=== PATIENT | female | born 1965 | race Caucasian/White ===

== ENCOUNTER 2020-04-19 23:55 | Emergency (ER) | payer MEDICAID, SELFPAY ==
[2020-04-20] VITALS (7 sets, daily range): BP systolic 110–166; BP diastolic 65–93; PULSE 78–88; RESP 16–18; TEMP 36.8; O2SAT 94–98; BMI 29.0
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
--- NOTE | 2020-04-20 00:19 | ECG_ITS ---
Test Reason : SYNCOPE Blood Pressure : / mmHG Vent. Rate : 086 BPM Atrial Rate : 086 BPM P-R Int : 134 ms QRS Dur : 082 ms QT Int : 364 ms P-R-T Axes : 053 047 -04 degrees QTc Int : 435 ms Normal sinus rhythm Possible Left atrial enlargement T wave abnormality, consider inferior ischemia Abnormal ECG When compared with ECG of 07-OCT-2010 07:11, Vent. rate has decreased BY 56 BPM Criteria for Septal infarct are no longer Present Nonspecific T wave abnormality, improved in Lateral leads Referred By: Tiesha Oneill Electronically Signed By:ROBBY ANGELA
[2020-04-20 00:44] LABS: MANUAL DIFF FLAG NO
[2020-04-20 00:45] LABS: Basophils Absolute Auto 0.1 X10*3/uL (0.0-0.2); Basophils Percent Auto 0.6 % (0-2); Eosinophils Absolute Auto 0.3 X10*3/uL (0.0-0.4); Eosinophils Percent Auto 3.5 % (0-4); Hematocrit 37.5 % (37-47); Hemoglobin 12.6 g/dl (12.0-16.0); Imm Gran Abs Auto 0.04 X10*3/uL (0.00-0.03); Imm Gran Pct Auto 0.4 % (0.0-0.4); Lymphocytes Absolute Auto 2.8 X10*3/uL (1.2-4.9); Lymphocytes Percent Auto 29.4 % (20-40); Mean Corpuscular HGB Conc 33.6 g/dl (31.0-35.0); Mean Corpuscular Hemoglobin 30.7 pg (27.0-33.0); Mean Corpuscular Volume 91.2 fL (80-98); Mean Platelet Volume 9.3 fL (9.4-12.3); Monocytes Absolute Auto 0.6 X10*3/uL (0.1-1.2); Monocytes Percent Auto 6.6 % (2-11); Neutrophils Absolute Auto 5.7 X10*3/uL (2.0-8.3); Neutrophils Percent Auto 59.5 % (45-73); Platelet Count 280 X10*3/uL (160-400); Red Blood Count 4.11 X10*6/uL (4.20-5.50); White Blood Count 9.6 X10*3/uL (4.8-10.8)
--- NOTE | 2020-04-20 01:03 | ED.SYNCOPE ---
HPI - Syncope General Chief Complaint: Syncope Stated Complaint: syncope Time Seen by Provider: 04/20/20 00:19 Source: patient Mode of arrival: ambulatory History of Present Illness HPI narrative: This is a 54-year-old female with history of fibromyalgia and presents after taking to hits off a blunt and then stated that she felt a flushing of her face and ?passed out?. She denies any associated diaphoresis, nausea, chest pain/palpitations, shortness of breath, cool or clammy feeling prior to this event. As per EMS report patient received nasal Narcan as well as Zofran. Their report also states that patient struck her head, however patient does not recall this event. She states that she woke up and her significant other was ?freaking out and he should take an ambulance?. Related Data Allergies Allergy/AdvReac Type Severity Reaction Status Date / Time No Known Allergies Allergy Unverified 11/06/19 14:45 Review of Systems Review of Systems: Pertinent positives and negatives as stated in HPI 10 point review systems is otherwise negative. PMFSH Past Medical History Source: nursing notes reviewed Social History Social History Alcohol intake: current Alcohol intake frequency: other Alcohol type: hard liquor Smoking Status: Never smoker Substance Use Type: Crack/Cocaine, Heroin and Marijuana Substance Use Frequency: Socially Last Used Substance: Weeks (ago) Any prior treatment program specific to substance use: Yes Advance Directives: No Physical Exam Vital Signs: Vital Signs: Last Vital Signs Temp 98.3 F 04/20/20 00:24 Pulse 87 04/20/20 01:49 Resp 16 04/20/20 01:49 BP 110/82 04/20/20 01:49 Pulse Ox 98 04/20/20 01:49 Body Mass Index 29.0 VITAL SIGNS: Reviewed. GENERAL: Well developed, well nourished, in no acute distress. HEAD: Normocephalic/atraumatic, EYES: PERRLA, EOMI NOSE: Nares patent bilateral OROPHARYNX: no oral lesions noted, posterior pharynx clear NECK: Supple, no adenopathy LUNGS: Normal breath sounds. No adventitious sounds or accessory muscle use. SpO2<94> CARDIOVASCULAR: Regular rate and rhythm without noted murmurs ABDOMEN: Soft, non-tender, non-distended with bowel sounds. SKIN: Inspection of the skin reveals no rashes, ulcerations, jaundice, pallor, or petechiae. NEUROLOGIC: Alert and oriented x 4. Strength and sensation to light touch were grossly intact x 4, no pronator drift, no facial asymmetry, cranial nerves 2-12 are grossly intact, cerebellar testing intact Course Course Course Narrative: This is a 54-year-old female with history and clinical presentation likely consistent with vasovagal response secondary to marijuana use, but will rule out infection, anemia, cardiopulmonary etiologies. Review of all investigations is negative for any acute findings to better explain patient's ?passing out?. Patient encouraged to drink plenty of fluids and she was discharged in stable condition. MDM - Syncope Lab Data Result diagrams: 04/20/20 00:39 04/20/20 00:40 Labs: Lab Results 04/20/20 04/20/20 04/20/20 Range/Units 00:39 00:40 01:39 WBC 9.6 (4.8-10.8) X10*3/uL RBC 4.11 L (4.20-5.50) X10*6/uL Hgb 12.6 (12.0-16.0) g/dl Hct 37.5 (37-47) % MCV 91.2 (80-98) fL MCH 30.7 (27.0-33.0) pg MCHC 33.6 (31.0-35.0) g/dl RDW 12.0 (11.0-16.0) % Plt Count 280 (160-400) X10*3/uL MPV 9.3 L (9.4-12.3) fL Immature Gran % (Auto) 0.4 (0.0-0.4) % Neut % (Auto) 59.5 (45-73) % Lymph % (Auto) 29.4 (20-40) % Stevens % (Auto) 6.6 (2-11) % Eos % (Auto) 3.5 (0-4) % Baso % (Auto) 0.6 (0-2) % Lymph # (Auto) 2.8 (1.2-4.9) X10*3/uL Stevens # (Auto) 0.6 (0.1-1.2) X10*3/uL Eos # (Auto) 0.3 (0.0-0.4) X10*3/uL Baso # (Auto) 0.1 (0.0-0.2) X10*3/uL Abs Immat Gran (auto) 0.04 H (0.00-0.03) X10*3/uL Absolute Neuts (auto) 5.7 (2.0-8.3) X10*3/uL Absolute Nucleated RBC 0.000 (0.0-0.012) X10*3/uL Nucleated RBC % (auto) 0.0 (0.0-0.2) /100WBC Sodium 142 (135-145) mmol/L Potassium 4.0 (3.3-5.1) mmol/L Chloride 105 (96-108) mmol/L Carbon Dioxide 27 (22-29) mmol/L Anion Gap 14 (12-20) BUN 27 H (9-16) mg/dL Creatinine 0.79 (0.5-1.4) mg/dL Estim Creat Clear Calc 79.6 Estimated GFR > 60 Random Glucose 119 H (60-115) mg/dL Calcium 9.3 (8.4-10.2) mg/dL Total Bilirubin 0.4 (0.0-1.0) mg/dL AST 19 (5-31) U/L ALT 35 H (0-31) U/L Alkaline Phosphatase 82 (39-117) U/L Total Protein 7.1 (6.5-8.0) g/dL Albumin 4.5 (3.5-5.0) g/dL Urine Color YELLOW Urine Appearance CLEAR Urine pH 6.0 (5.0-8.0) Ur Specific [place] >= 1.030 H (1.005-1.025) Urine Protein NEG (NEG-TRACE) MG/DL Urine Glucose (UA) NEG (NEG) MG/DL Urine Ketones NEG (NEG) MG/DL Urine Blood NEG (NEG) Urine Nitrite NEG (NEG) Ur Leukocyte Esterase NEG (NEG) ECG Data Attestation: I personally reviewed and interpreted this ECG as follows: Prior ECG tracings: available for review (10/07/2010 no acute changes on comparison) Interpretation: Normal sinus rhythm, HR -86, no evidence of acute ischemia, TX/QRS/QTC are within normal limits. Discharge Plan Discharge Clinical Impression: Vasovagal syncope Patient Disposition: Home, Self-Care Instructions: Syncope (ED) Additional Instructions: Do not hesitate to return to the emergency department at if you develop any acute worsening of your symptoms or decide that you would like detox. Referrals: Physician,Unknown [Primary Care Provider] - 2 days
[2020-04-20 01:15] LABS: Alanine Aminotransferase 35 U/L (0-31); Albumin Level 4.5 g/dL (3.5-5.0); Alkaline Phosphatase 82 U/L (39-117); Anion Gap 14 (12-20); Aspartate Amino Transferase 19 U/L (5-31); Bilirubin Total 0.4 mg/dL (0.0-1.0); Blood Urea Nitrogen 27 mg/dL (9-16); Calcium 9.3 mg/dL (8.4-10.2); Carbon Dioxide 27 mmol/L (22-29); Chloride 105 mmol/L (96-108); Creatinine Clr Calc Pharmacy 79.6; Estimated Glomerular Filt Rate > 60; Glucose Random 119 mg/dL (60-115); Sodium 142 mmol/L (135-145); Total Protein 7.1 g/dL (6.5-8.0)
[2020-04-20 01:53] LABS: Glucose Urine UA NEG (NEG); Leukocyte Esterase Urine NEG (NEG); Nitrite Urine NEG (NEG); Specific Gravity - Urine >= 1.030 (1.005-1.025); Urine Blood NEG (NEG); Urine Ketones NEG (NEG); Urine Protein NEG (NEG-TRACE)
[2020-04-20 01:54] LABS: Appearance Urine CLEAR; Color Urine YELLOW; UACC Culture Trigger NO
[2020-04-20] MEDS: Naloxone HCl Nasal TAKE HOME 4 MG SPRAY NOSTRILALT (02:26)
--- NOTE | 2020-04-20 02:27 | PC.NURSE ---
narcan nasal 4mg for take home, not administered in the ed.
== END 2020-04-20 02:37 | disposition home or self-care (01) ==
PROVIDERS: Emergency Provider Student in an Organized Health Care Education/Training Program
DX: R55 Syncope and collapse (principal); F11.20 Opioid dependence, uncomplicated; F14.90 Cocaine use, unspecified, uncomplicated; F12.90 Cannabis use, unspecified, uncomplicated
CPT/HCPCS: 36415; 80053; 81003; 85025; 93005; 99284; 99285

== ENCOUNTER 2020-07-15 23:58 | Emergency (ER) | payer MEDICAID, SELFPAY ==
[2020-07-16 00:41] VITALS: BP 134/78; PULSE 92; RESP 18; TEMP 36.9; O2SAT 95; BMI 29.5
--- NOTE | 2020-07-16 01:05 | ED_ITS ---
HPI - General Adult General Chief complaint: General Medical Stated complaint: multiple complaints Time Seen by Provider: 07/16/20 01:05 History of Present Illness HPI narrative: Patient is a 55-year-old female she was concerned that she developed a rash over her arm. May have extra tissue over her axillary area. Patient denies any shortness of breath. No changes in her voice. No changes in her speech. Previously had a history of fibromyalgia. No coughing or congestion upper respiratory symptoms. No fever. Related Data Allergies Allergy/AdvReac Type Severity Reaction Status Date / Time No Known Allergies Allergy Verified 07/16/20 00:40 Review of Systems Review of Systems: Constitutional: No Weight loss, No Fever, No Chills, No Night Sweats, No Fatigue, No Malaise ENT/Mouth: No Hearing loss, No Ear Pain, No Nasal Congestion, No Sinus Pain, No Hoarseness, No sore throat, No Rhinorrhea, No Swallowing Difficulty Eyes: No Eye Pain, No Swelling, No Redness, No Foreign Body, No Discharge, No Vision Changes Cardiovascular: No Chest Pain, No SOB, No Dyspnea on Exertion, No Orthopnea, No Edema, No Palpitations Respiratory: No Cough, No Sputum, No Wheezing, No Smoke Exposure, No Dyspnea Gastrointestinal: No Nausea, No Vomiting, No Diarrhea, No Constipation, No abdominal Pain, No Hematochezia, No Melena Genitourinary: no irregular bleeding, No Dysuria, No Urinary Frequency, No Hematuria, No Urinary Incontinence, No Urgency, No Flank Pain, No Urinary Flow Changes, No Hesitancy Musculoskeletal: No joint pain, No Myalgias, No Joint Swelling Skin: No Skin Lesions, positive rash over the sun-exposed area of the left forearm Neuro: No Weakness, No Numbness, No Paresthesias, No Loss of Consciousness, No Dizziness, No Headache Psych: No Anxiety/Panic, No Depression, No SI/HI/AH/VH, No Social Issues, Heme/Lymph: No Bruising, No Bleeding,No Lymphadenopathy Endocrine: No Polyuria, No Polydipsia, No Temperature Intolerance [facility] Social History Social History Alcohol intake: current Alcohol intake frequency: other Alcohol type: hard liquor Substance Use Type: Crack/Cocaine, Heroin and Marijuana Patient : No Physical Exam Vital Signs: Vital Signs: Last Vital Signs Temp 98.4 F 07/16/20 00:41 Pulse 92 07/16/20 00:41 Resp 18 07/16/20 00:41 BP 134/78 07/16/20 00:41 Pulse Ox 95 07/16/20 00:41 Body Mass Index 29.5 Appearance: Alert. Oriented X3. No acute distress. Eyes: Pupils equal, round and reactive to light. ENT: Pharynx normal. Neck: Normal inspection. Neck supple. No lymph nodes noted. No crepitus CVS: Normal heart rate and rhythm. Pulses normal. Normal S1 and S2 Respiratory: No respiratory distress. Breath sounds normal. No Wheezing. No rales. There is no nodes that was palpable in the axillary area. There is small amount adipose tissue does noted bilaterally. Abdomen: Soft and nontender. No rigidity. No distention. good BS x4 Skin: Skin warm and dry. Normal skin color. Normal skin turgor. There is a slightly raised red rash over the sun-exposed area on the left arm and forearm. It blanches. Extremities: No lower extremity edema. Neurovascular intact to all extremities. No Lacerations. No Rash Neuro: Oriented X 3. No motor deficit. No sensory deficit. Moving all extermities. No slurred speech Medical Decision Making MDM Narrative Medical decision making narrative: Patient had the coronavirus vaccine 2nd dose visor today. Subsequently noted questionable tissue in her axillary area. It appears to be adipose tissue there was no nodes that was palpable there is no gross erythema there. There is a possible sun exposed rash to the left forearm and arm. Will ask patient to use Benadryl. Patient's lungs are clear. No distress. Speaking in complete sentences. In stable condition. Will discharge home. Discharge Plan Discharge Clinical Impression: Allergic reaction Instructions: General Allergic Reaction (ED) Referrals: Physician,None [Primary Care Provider] - 2 days (Follow-up with your doctor in 2 days if symptoms not improved.)
== END 2020-07-16 01:20 | disposition home or self-care (01) ==
PROVIDERS: Emergency Provider Emergency Medicine Emergency Medical Services
DX: L56.3 Solar urticaria (principal); F14.90 Cocaine use, unspecified, uncomplicated; F11.90 Opioid use, unspecified, uncomplicated; F12.90 Cannabis use, unspecified, uncomplicated
CPT/HCPCS: 99282; 99283

== ENCOUNTER 2020-09-23 22:20 | Emergency (ER) | payer MEDICAID, SELFPAY ==
[2020-09-23 22:42] VITALS: BP 134/70; PULSE 92; RESP 18; TEMP 36.8; O2SAT 97; BMI 29.9
--- NOTE | 2020-09-23 23:21 | ED_ITS ---
HPI - Extremity Problem General Chief complaint: Extremity Injury, Upper Stated complaint: elbow inj Time Seen by Provider: 09/23/20 23:16 Source: patient Mode of arrival: ambulatory Limitations: no limitations History of Present Illness HPI Narrative: The patient presented with right elbow pain for about a month she has no direct trauma in the elbow she states that it started when she carry heavy grocery at home Complaint: extremity pain Onset (ago): day(s) Pain Consistency: constant Location: right (elbow) Radiation: none Relieving factors: nothing Exacerbating factors: nothing Associated symptoms: denies other symptoms Related Data Previous Rx's Medication Instructions Recorded ibuprofen 800 mg tablet 800 mg PO TID PRN #20 tab 09/23/20 Allergies Allergy/AdvReac Type Severity Reaction Status Date / Time No Known Allergies Allergy Verified 09/23/20 22:42 Review of Systems Review of Systems: Yes all other systems are reviewed and are negative Constitutional: Constitutional: Reports as per HPI Eyes: Eyes: Reports as per HPI ENT: Reports system reviewed and no additional complaints, except as documented Cardiovascular: Cardiovascular: Reports no additional cardiovascular complaints Respiratory: Respiratory: Reports no additional respiratory complaints Gastrointestinal: Gastrointestinal: Reports no additional gastrointestinal complaints Musculoskeletal: Musculoskeletal: Reports no additional musculoskeletal complaints Integumentary/Breasts: Skin/Breast: Reports system reviewed and no additional complaints, except as docu Neurologic: Reports system reviewed and no additional complaints, except as documented Psychiatric: Psychiatric: Reports no additional psychiatric complaints Endocrine: Endocrine: Reports no additional endocrine complaints Hematologic/Lymphatic: Hematologic/Lymphatic: Reports no additional hematolog ic/lymphatic complaints Allergic/Immunologic: Allergic/Immunologic: Reports no additional allergic/immunologic complaints [facility] Past Medical History Medical History Anxiety Bipolar 1 disorder Cervical cancer Fibromyalgia PTSD (post-traumatic stress disorder) Surgical History History of tubal ligation S/P correction of deviated nasal septum Social History Social History Alcohol intake: current Alcohol intake frequency: other Alcohol type: hard liquor Substance Use Type: Crack/Cocaine, Heroin and Marijuana Advance Directives: No Advance Directives Information Provided: No Patient : No Physical Exam Vital Signs: Vital Signs: Last Vital Signs Temp 98.3 F 09/23/20 22:42 Pulse 92 09/23/20 22:42 Resp 18 09/23/20 22:42 BP 134/70 09/23/20 22:42 Pulse Ox 97 09/23/20 22:42 Body Mass Index 29.9 Const: General: cooperative and healthy appearing Orientation/consciousness: oriented to person, oriented to place, oriented to time and patient oriented x3 HENMT: Head: Yes normal to inspection, Yes No palpable skull fracture present and Yes normocephalic Eyes: General: appearance normal, both eyes and all related structures Visual Gomez: normal visual gomez by confrontation Pupils: Pupils normal by confrontation EOM: EOMs intact bilaterally Neck: Neck: Yes normal visual inspection and Yes full ROM Thyroid: Thyroid normal Lymphatic: no lymphadenopathy noted Chest: Chest palpation & inspection: normal inspection of the chest Resp: Effort & Inspection: normal respiratory effort Cardio: Jugular venous distension: no JVD Rate: regular rate GI: Inspection: Yes normal to inspection Auscultation: normal bowel sounds Neuro: General: oriented to person, oriented to place, oriented to time and patient oriented x3 Extrem: Other: Extremity examination shows tenderness in the lateral aspect of the right elbow. She has full range of motion there is no deformity no hematoma sensation is strength is normal Discharge Plan Discharge Clinical Impression: Tendinitis Patient Disposition: Home, Self-Care Instructions: Tendinitis (ED) Additional Instructions: Rest the right upper extremity, take ibuprofen as directed Prescriptions: New ibuprofen 800 mg tablet 800 mg PO TID PRN (Reason: pain) Qty: 20 RF: 0 Referrals: Samir Martin MD [Physician] - 3 days Interventions: ED Discharge Assessment Last Done: 09/24/20 00:01 Discharge Date/Time: 09/24/20 00:03
== END 2020-09-24 00:03 | disposition home or self-care (01) ==
PROVIDERS: Emergency Provider Emergency Medicine
DX: M77.11 Lateral epicondylitis, right elbow (principal); F14.90 Cocaine use, unspecified, uncomplicated; F11.90 Opioid use, unspecified, uncomplicated; F12.90 Cannabis use, unspecified, uncomplicated; Z79.899 Other long term (current) drug therapy
CPT/HCPCS: 99283

== ENCOUNTER → 2020-10-13 13:36 | Outpatient (BNVA) | payer MEDICAID, SELFPAY | PROVIDERS: Visit Provider Orthopaedic Surgery | DX: M77.11 Lateral epicondylitis, right elbow (principal) | CPT/HCPCS: 99202 ==

== ENCOUNTER 2020-10-14 16:59 | Emergency (ER) | payer MEDICAID, SELFPAY ==
--- NOTE | ~2020-10-14 | XR_ITS ---
EXAMINATION: XR LUMBAR SPINE XR SACRUM/COCCYX XR PELVIS CLINICAL INFORMATION: Fall COMPARISON: 01/06/2015 TECHNIQUE: Frontal view of the pelvis. 2 views of the lumbar spine. 3 views of the sacrum/coccyx. FINDINGS: Pelvis: No fracture or dislocation. The hips are well aligned. Joint spaces are maintained. The pelvic rim is intact. The sacroiliac joints and pubic symphysis are intact. Normal bowel gas pattern. Stool in the colon. Lumbar spine and sacrum/coccyx: No acute fracture or subluxation. There is grade 1 anterolisthesis of L4 on L5 which is increased from 2015. Associated facet arthropathy. Disc space narrowing of L5-S1 with vacuum disc phenomenon. The sacrum is intact. Typical alignment of the coccyx. XR/XR pelvis 1-2V IMPRESSION: No acute fracture or malalignment. Mild degenerative changes of the lower lumbar spine.
--- NOTE | ~2020-10-14 | XR_ITS ---
EXAMINATION: XR LUMBAR SPINE XR SACRUM/COCCYX XR PELVIS CLINICAL INFORMATION: Fall COMPARISON: 01/06/2015 TECHNIQUE: Frontal view of the pelvis. 2 views of the lumbar spine. 3 views of the sacrum/coccyx. FINDINGS: Pelvis: No fracture or dislocation. The hips are well aligned. Joint spaces are maintained. The pelvic rim is intact. The sacroiliac joints and pubic symphysis are intact. Normal bowel gas pattern. Stool in the colon. Lumbar spine and sacrum/coccyx: No acute fracture or subluxation. There is grade 1 anterolisthesis of L4 on L5 which is increased from 2015. Associated facet arthropathy. Disc space narrowing of L5-S1 with vacuum disc phenomenon. The sacrum is intact. Typical alignment of the coccyx. XR/XR sacrum coccyx min 2V IMPRESSION: No acute fracture or malalignment. Mild degenerative changes of the lower lumbar spine.
--- NOTE | ~2020-10-14 | XR_ITS ---
EXAMINATION: XR LUMBAR SPINE XR SACRUM/COCCYX XR PELVIS CLINICAL INFORMATION: Fall COMPARISON: 01/06/2015 TECHNIQUE: Frontal view of the pelvis. 2 views of the lumbar spine. 3 views of the sacrum/coccyx. FINDINGS: Pelvis: No fracture or dislocation. The hips are well aligned. Joint spaces are maintained. The pelvic rim is intact. The sacroiliac joints and pubic symphysis are intact. Normal bowel gas pattern. Stool in the colon. Lumbar spine and sacrum/coccyx: No acute fracture or subluxation. There is grade 1 anterolisthesis of L4 on L5 which is increased from 2015. Associated facet arthropathy. Disc space narrowing of L5-S1 with vacuum disc phenomenon. The sacrum is intact. Typical alignment of the coccyx. XR/XR lumbar spine 2-3V IMPRESSION: No acute fracture or malalignment. Mild degenerative changes of the lower lumbar spine.
[2020-10-14 17:20] VITALS: BP 112/63; PULSE 83; RESP 16; TEMP 37.3; O2SAT 98; BMI 29.0
--- NOTE | 2020-10-14 20:19 | ED_ITS ---
HPI - Fall General Chief Complaint: Fall Stated Complaint: Fall 10/10 Time Seen by Provider: 10/14/20 19:03 Source: patient Mode of arrival: ambulatory History of Present Illness HPI Narrative: 55-year-old female with a past medical history of anxiety, bipolar, fibromyalgia, PTSD, presenting to the ED complaining of buttocks/low back pain s/p mechanical trip and fall down wet stairs 1 week ago. Denies symptoms prior to fall, denies head trauma or LOC. Denies taking anticoagulation. Denies numbness, tingling, weakness, urinary incontinence/retention MD complaint: fall Related Data Home Medications Medication Instructions Recorded Confirmed buprenorphine 2 mg-naloxone 0.5 mg 1 film BUCCAL DAILY 10/13/20 sublingual film (Suboxone) Previous Rx's Medication Instructions Recorded ibuprofen 800 mg tablet 800 mg PO TID PRN #20 tab 09/23/20 ibuprofen 800 mg tablet 800 mg PO Q8H #90 tab 10/13/20 acetaminophen 500 mg tablet 500 mg PO Q6H PRN #20 tab 10/14/20 (Tylenol Extra Strength) ibuprofen 400 mg tablet 400 mg PO Q6H 7 Days #28 tab 10/14/20 lidocaine 5 % topical patch 1 patch TOPICAL DAILY PRN #30 ea 10/14/20 (Lidoderm) MDD remove after 12 hours nystatin 100,000 unit/gram topical 1 appl TOPICAL BID #30 g 10/14/20 cream Allergies Allergy/AdvReac Type Severity Reaction Status Date / Time No Known Allergies Allergy Verified 09/23/20 22:42 Review of Systems Review of Systems: Constitutional No Fever, No Chills ENT/Mouth: No Ear Pain, No Hoarseness, No sore throat Cardiovascular: No Chest Pain, No SOB Respiratory: No Cough Gastrointestinal: No Nausea, No Vomiting, No Abdominal pain Genitourinary: No Dysuria, No Urinary Incontinence/retenttion Musculoskeletal: No joint pain, +Myalgias, +Joint Swelling Skin: No Skin Lesions, No rash Neuro: No Weakness, No Numbness, No Paresthesias Yes all other systems are reviewed and are negative Neurologic: Denies Abnormal speech present and Denies Sensory deficit (Neuro) [facility] Past Medical History Attestation statement: The following information was validated with the patient. Medical History Anxiety Bipolar 1 disorder Cervical cancer Fibromyalgia PTSD (post-traumatic stress disorder) Surgical History History of tubal ligation S/P correction of deviated nasal septum Social History Social History Alcohol intake: current Alcohol intake frequency: other Alcohol type: hard liquor Substance Use Type: Crack/Cocaine, Heroin and Marijuana Advance Directives: No Advance Directives Information Provided: No Physical Exam Vital Signs: Vital Signs: Last Vital Signs Temp 99.1 F 10/14/20 17:20 Pulse 83 10/14/20 17:20 Resp 16 10/14/20 17:20 BP 112/63 10/14/20 17:20 Pulse Ox 98 10/14/20 17:20 Body Mass Index 29.0 Const: General: cooperative, healthy appearing and no acute distress Orientation/consciousness: patient oriented x3 Limitations: no limitations HENMT: Head: Yes normal to inspection and Yes atraumatic Ears: hearing grossly normal bilaterally General nose exam: Normal external nose present Face and sinus: Yes normal facial exam Eyes: General: appearance normal, both eyes and all related structures Pupils: Equal, round and reactive pupils present EOM: EOMs intact bilaterally Neck: Other: No midline cervical spinous tenderness/step-off Neck: Yes normal visual inspection Resp: Effort & Inspection: normal respiratory effort and no respiratory distress Cardio: Rate: regular rate GI: Inspection: Yes normal to inspection Palpation (GI): Soft to palpation, nontender, no guarding and not rigid Back/Spine/Pelvis: Other: No midline thoracic/lumbar spinous tenderness/step- off. Pelvis is stable. Skin: Other: +large ecchymosis to bilateral buttock and right thigh, tender to palpation +ecchymosis to left elbow Rashes: no rashes Neuro: Other: No saddle anesthesia General: patient oriented x3, gait normal, tone normal, moves all extremities and no focal motor deficits Cranial nerves: Yes CN's II-XII intact bilaterally and Yes Equal, round and reactive pupils present Cognition (Neuro): normal cognition Speech: No Abnormal speech present Gait exam (Neuro): Normal gait present Motor exam (neuro): 5/5 motor strength present throughout Sensory Exam: No Sensory deficit (Neuro) Extrem: Other: FROM x4 General: Yes normal to inspection Course Course Course Narrative: XR pelvis 1-2V / XR sacrum coccyx min 2V / XR lumbar spine 2- 3V IMPRESSION: No acute fracture or malalignment. Mild degenerative changes of the lower lumbar spine.? >> results discussed with patient including worrisome signs and symptoms and strict return precautions, she verbalized understanding feel safe for discharge home MDM - Fall MDM Narrative Medical decision making narrative: 55-year-old female with a past medical history of anxiety, bipolar, fibromyalgia, PTSD, presenting to the ED complaining of buttocks/low back pain s/p mechanical trip and fall down wet stairs 1 week ago. Denies symptoms prior to fall, denies head trauma or LOC. Denies taking anticoagulation. Denies numbness, tingling, weakness, urinary i ncontinence/retention Discharge Plan Discharge Clinical Impression: Hematoma, Traumatic buttock pain Patient Disposition: Home, Self-Care Instructions: Musculoskeletal Pain (ED), Bone Bruise (ED) Additional Instructions: Your x-ray shows degenerative changes, no fracture You have large bruising to her buttock area, ice, take Tylenol and Motrin, apply Lidoderm patches Nystatin cream will help with your chaffing/irritation If her symptoms persist or worsen/become unbearable please return to the ED Please follow-up with her doctor Prescriptions: New acetaminophen [Tylenol Extra Strength] 500 mg tablet 500 mg PO Q6H PRN (Reason: pain or fever) Qty: 20 RF: 0 lidocaine [Lidoderm] 5 % adhesive patch,medicated 1 patch topical DAILY MDD remove after 12 hours PRN (Reason: pain) Qty: 30 RF: 0 ibuprofen 400 mg tablet 400 mg PO Q6H 7 Days Qty: 28 RF: 0 nystatin 100,000 unit/gram cream 1 appl topical BID Qty: 30 RF: 0 No Action ibuprofen 800 mg tablet 800 mg PO TID PRN (Reason: pain) Qty: 20 RF: 0 ibuprofen 800 mg tablet 800 mg PO Q8H Qty: 90 RF: 3 Referrals: Physician,None [Primary Care Provider] - 2 days Interventions: ED Discharge Assessment Last Done: 10/14/20 20:29
== END 2020-10-14 20:29 | disposition home or self-care (01) ==
PROVIDERS: Emergency Provider Emergency Medicine
DX: S30.0XXA Contusion of lower back and pelvis, initial encounter (principal); S70.11XA Contusion of right thigh, initial encounter; S50.02XA Contusion of left elbow, initial encounter; W03.XXXA Other fall on same level due to collision with another person, initial encounter; Y93.89 Activity, other specified; Y92.038 Other place in apartment as the place of occurrence of the external cause; Y99.9 Unspecified external cause status
CPT/HCPCS: 72100; 72170; 72220; 99283

== ENCOUNTER 2021-06-24 13:10 | Outpatient (REF) | payer MEDICAID, SELFPAY ==
--- NOTE | ~2021-06-24 | MM_ITS ---
EXAMINATION: MM SCREENING DIGITAL BREAST TOMOSYNTHESIS, BILATERAL CLINICAL INFORMATION: Screening. Asymptomatic. The lifetime risk of breast cancer based on the Tyrer-Cuzick Model is 7%. COMPARISON: Mammography: 04/05/2018, 01/11/2016 TECHNIQUE: Digital breast tomosynthesis is performed in both the craniocaudal and mediolateral oblique views along with computer-aided detection (CAD). Synthesized 2D images are generated from the tomosynthesis. FINDINGS: There are scattered areas of fibroglandular density (ACR BI-RADS breast composition Category b). There are no significant masses, abnormal calcifications, or other abnormalities. No significant changes. Skin contours are smooth. MM/MM tomosynthesis screening BI IMPRESSION: No mammographic evidence of malignancy. ASSESSMENT: BI-RADS 1: Negative RECOMMENDATION: Routine annual mammography screening. This patient's information was entered into a reminder system with a target due date for their next mammogram.
== END 2021-06-24 13:11 | disposition home or self-care (01) ==
LOC: HO.MAMMO 13:10
DX: Z12.31 Encounter for screening mammogram for malignant neoplasm of breast (principal)
CPT/HCPCS: 77063; 77067

== ENCOUNTER 2022-05-19 18:23 | Emergency (ER) | payer MEDICAID, SELFPAY ==
--- NOTE | 2022-05-19 18:36 | ED_ITS ---
HPI - General Adult General Chief complaint: Skin/Abscess/Foreign Body Stated complaint: bug bite Time Seen by Provider: 05/19/22 18:40 Source: patient Mode of arrival: ambulatory Limitations: no limitations History of Present Illness HPI narrative: Patient is a 56 year old assigned female at with no reported medical history presenting to the emergency department today with left foot redness. Patient states that she noticed a week ago her left lateral foot began to have a red area and it has gotten larger since. Patient denies any dizziness, lightheadedness, abdominal pain, nausea, vomiting, fever, chills, blurry vision, double vision, loss of vision, chest pain, difficulty breathing, shortness of breath, back pain, night sweats, pain with urination, increased urinary frequency, increased urinary urgency, blood in her urine or stool, syncope or a near syncopal episode, recent trauma or falls, bowel incontinence, bladder incontinence, bowel retention, bladder retention, or any other complaints at t his time. Onset (ago): week(s) (1) Location: left and lower extremity Radiation: non-radiation Severity: mild Severity scale (1-10): 1 Relieving factors: none Exacerbating factors: none Associated symptoms: denies other symptoms Treatments prior to arrival: none Related Data Home Medications Medication Instructions Recorded Confirmed buprenorphine 2 mg-naloxone 0.5 mg 1 film buccal DAILY 10/13/20 sublingual film (Suboxone) Previous Rx's Medication Instructions Recorded ibuprofen 800 mg tablet 800 mg PO TID PRN pain #20 tabs 09/23/20 ibuprofen 800 mg tablet 800 mg PO Q8H #90 tabs 10/13/20 acetaminophen 500 mg tablet 500 mg PO Q6H PRN pain or fever 10/14/20 (Tylenol Extra Strength) #20 tabs ibuprofen 400 mg tablet 400 mg PO Q6H 7 days #28 tabs 10/14/20 lidocaine 5 % topical patch 1 patch topical DAILY PRN pain #30 10/14/20 (Lidoderm) ea nystatin 100,000 unit/gram topical 1 appl topical BID #30 grams 10/14/20 cream cephalexin 500 mg capsule 500 mg PO Q6H 7 days #28 caps 05/19/22 hydrocortisone 2.5 % topical cream 1 appl topical BID PRN rash #28 05/19/22 grams Allergies Allergy/AdvReac Type Severity Reaction Status Date / Time No Known Allergies Allergy Verified 09/23/20 22:42 Review of Systems Constitutional: Constitutional: Reports no additional constitutional complaints, Denies chills, Denies fever(s) and Denies night sweats Eyes: Eyes: Reports no additional eye complaints, Denies blurry vision, Denies change in vision, Denies diplopia, Denies eye discharge, Denies loss of vision and Denies eye pain ENT: Denies dizziness Cardiovascular: Cardiovascular: Reports no additional cardiovascular complaints, Denies chest pain, Denies lightheadedness, Denies Loss of Consciousness and Denies dyspnea Respiratory: Respiratory: Reports no additional respiratory complaints and Denies dyspnea Gastrointestinal: Gastrointestinal: Reports no additional gastrointestinal complaints, Denies abdominal pain, Denies melena, Denies hematochezia, Denies change in bowel habits and Denies change in stool character Genitourinary: Genitourinary: Denies hematuria, Denies urinary frequency, Denies dysuria, Denies urinary incontinence, Denies urinary hesitancy and Denies urinary urgency Musculoskeletal: Musculoskeletal: Reports no additional musculoskeletal complaints, Denies numbness and Denies tingling Integumentary/Breasts: Comments: left foot redness Neurologic: Denies dizziness, Denies loss of vision, Denies numbness and Denies tingling Psychiatric: Psychiatric: Reports no additional psychiatric complaints Endocrine: Endocrine: Reports no additional endocrine complaints Hematologic/Lymphatic: Hematologic/Lymphatic: Reports no additional hematologic/lymphatic complaints Allergic/Immunologic: Allergic/Immunologic: Reports no additional allergic/immunologic complaints PMFSH Past Medical History Attestation statement: The following information was validated with the patient. Source: old records reviewed and nursing notes reviewed Medical History Anxiety Bipolar 1 disorder Cervical cancer Fibromyalgia PTSD (post-traumatic stress disorder) Surgical History History of tubal ligation S/P correction of deviated nasal septum Social History Social History Alcohol intake: current Alcohol intake frequency: other Alcohol type: hard liquor Substance Use Type: Crack/Cocaine, Heroin and Marijuana Advance Directives: No Advance Directives Information Provided: Yes Physical Exam ED Vital Signs: Vital Signs - 24 hr 03/31/23 18:37 Temperature 96.0 F L Pulse Rate 78 Respiratory Rate 18 Blood Pressure 149/76 H Pulse Oximetry 98 Oxygen Delivery Method Room Air BMI result Body Mass Index 29.0 Const General: cooperative, no acute distress, alert and awake Nutritional Appearance: well nourished Orientation/consciousness: patient oriented x3 Limitations: no limitations HENMT Head: Yes normal to inspection and Yes atraumatic Ears: hearing grossly normal bilaterally and external ears normal General nose exam: Normal external nose present, no nasal discharge noted and no epistaxis Face and sinus: Yes normal facial exam, No abrasion and No laceration Mouth: Normal oral and palatal mucosa present, no drooling and no muffled voice Eyes General: appearance normal, both eyes and all related structures Periorbital: periorbital findings normal Eyelids: Yes eyelids normal Conjunctivae: conjunctivae normal Pupils: Equal, round and reactive pupils present EOM: EOMs intact bilaterally Neck Neck: Yes normal visual inspection, Yes full ROM and Yes no lymphadenopathy Chest Chest palpation & inspection: normal inspection of the chest Resp Effort & Inspection: normal respiratory effort and able to speak in complete sentences GI Inspection: Yes normal to inspection Skin Other: small area of redness to the left dorsolateral foot - no warmth, no swelling. Neuro General: patient oriented x3 and moves all extremities Cranial nerves: Yes Equal, round and reactive pupils present Cognition (Neuro): normal cognition Motor exam (neuro): 5/5 motor strength present throughout Sensory Exam: Normal double simultaneous stimulation for sensation Coordination: [id number] test normal Extrem General: Yes normal to inspection, Yes full ROM and Yes capillary refill normal Psych Appearance: grossly normal Mental Status: mental status grossly normal Affect: normal affect Attitude: cooperative Thought process: Normal thought process present Thought content: Normal thought content present Insight: Good insight present (Psych) Medical Decision Making Medical Decision Making MDM Narrative: Patient is a 56 year old assigned female at with no reported medical history presenting to the emergency department today with left foot redness. Patient's physical exam showed a small area of redness on the left foot as noted in the physical exam portion of this chart but was otherwise unremarkable. I explained my physical exam findings to the patient. I answered all questions asked by the patient. I stressed the importance of the patient taking her medication as prescribed. I stressed the importance of the patient following up with her primary care provider. I stressed the importance of the patient returning to the emergency department immediately if her symptoms were to worsen or if she were to develop any dizziness, shortness of breath, difficulty breathing, chest pain, blurry vision, loss of vision, nausea, vomiting, abdominal pain, fever, chills, back pain, or any other complaints. Patient micheline balized agreement and understanding with this treatment plan and discharge. Differential Diagnosis Differential Diagnoses: The differential diagnosis associated with the presentation includes cellulitis Discharge Plan Discharge Clinical Impression: Cellulitis Patient Disposition: Home, Self-Care Instructions: Cellulitis (DC) Additional Instructions: Follow up with your primary care provider. Return to the emergency department immediately if your symptoms worsen or if you develop any dizziness, shortness of breath, difficulty breathing, chest pain, blurry vision, loss of vision, nausea, vomiting, abdominal pain, fever, chills, back pain, or any other complaints. Prescriptions: New cephalexin 500 mg capsule 500 mg PO Q6H 7 Days Qty: 28 0RF hydrocortisone 2.5 % cream 1 appl topical BID PRN (Reason: rash) Qty: 28 0RF No Action acetaminophen [Tylenol Extra Strength] 500 mg tablet 500 mg PO Q6H PRN (Reason: pain or fever) Qty: 20 0RF lidocaine [Lidoderm] 5 % adhesive patch,medicated 1 patch topical DAILY MDD remove after 12 hours PRN (Reason: pain) Qty: 30 0RF Rx Instructions: leave on most painful area for up to 12 hrs ibuprofen 400 mg tablet 400 mg PO Q6H 7 Days Qty: 28 0RF nystatin 100,000 unit/gram cream 1 appl topical BID Qty: 30 0RF ibuprofen 800 mg tablet 800 mg PO TID PRN (Reason: pain) Qty: 20 0RF ibuprofen 800 mg tablet 800 mg PO Q8H Qty: 90 3RF Referrals: [facility] – [place] Family Medicine [Provider Group] (Call to establish and follow up with a primary care provider. If you already have a primary care provider, please follow up with them.) [facility] – [place] [facility] [Provider Group] (Call to establish and follow up with a primary care provider. If you already have a primary care provider, please follow up with them.) [facility] – [place] [facility] [Provider Group] (Call to establish and follow up with a primary care provider. If you already have a primary care provider, please follow up with them.) Print Language: Bulgarian
[2022-05-19 18:37] VITALS: BP 149/76; PULSE 78; RESP 18; TEMP 35.6; O2SAT 98; BMI 29.0
== END 2022-05-19 18:50 | disposition home or self-care (01) ==
PROVIDERS: Emergency Provider Emergency Medicine
DX: L03.116 Cellulitis of left lower limb (principal); F11.20 Opioid dependence, uncomplicated
CPT/HCPCS: 99282; 99283

== ENCOUNTER 2022-06-23 02:54 | Emergency (ER) | payer MEDICAID, SELFPAY ==
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
[2022-06-23 03:10] VITALS: BP 143/75; BP 150/95; PULSE 100; PULSE 120; RESP 20; TEMP 36.7; O2SAT 100; O2SAT 96; BMI 29.2
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
--- NOTE | 2022-06-23 04:48 | PC.NURSE ---
pt requesting to leave, this RN let MD Rice know. Pt up for d/c now
== END 2022-06-23 04:48 | disposition home or self-care (01) ==
PROVIDERS: Emergency Provider Internal Medicine
DX: S00.83XA Contusion of other part of head, initial encounter (principal); R22.0 Localized swelling, mass and lump, head; R51.9 Headache, unspecified; Y04.2XXA Assault by strike against or bumped into by another person, initial encounter; Y93.9 Activity, unspecified; Y92.9 Unspecified place or not applicable; Y99.9 Unspecified external cause status; Z79.899 Other long term (current) drug therapy
CPT/HCPCS: 70450; 70486; 72125; 99284

== ENCOUNTER 2022-06-30 12:38 | Emergency (ER) | payer MEDICAID, SELFPAY ==
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
[2022-06-30 13:26] VITALS: BP 127/52; PULSE 69; RESP 18; TEMP 36.6; O2SAT 98; BMI 29.9
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
[2022-06-30 16:28] VITALS: BP 111/51; PULSE 74; RESP 16; TEMP 36.8; O2SAT 98
== END 2022-06-30 16:49 | disposition home or self-care (01) ==
PROVIDERS: Emergency Provider Emergency Medicine
DX: S83.92XA Sprain of unspecified site of left knee, initial encounter (principal); S83.91XA Sprain of unspecified site of right knee, initial encounter; S80.02XA Contusion of left knee, initial encounter; S80.01XA Contusion of right knee, initial encounter; Y04.2XXA Assault by strike against or bumped into by another person, initial encounter; Y93.9 Activity, unspecified; Y92.039 Unspecified place in apartment as the place of occurrence of the external cause; Y99.9 Unspecified external cause status; Z79.899 Other long term (current) drug therapy
CPT/HCPCS: 73564; 99283; 99284

== ENCOUNTER 2023-03-09 13:33 | Outpatient (REF) | payer MEDICAID, SELFPAY | END 2023-03-09 13:34 | disposition home or self-care (01) | LOC: HO.MAMMO 13:33 | PROVIDERS: PCP Student in an Organized Health Care Education/Training Program; Visit Provider Student in an Organized Health Care Education/Training Program | DX: Z12.31 Encounter for screening mammogram for malignant neoplasm of breast (principal) | CPT/HCPCS: 77063; 77067 ==

== ENCOUNTER → 2023-03-09 13:45 | Outpatient (BNV) | payer MEDICAID, SELFPAY | PROVIDERS: PCP Student in an Organized Health Care Education/Training Program; Visit Provider Radiology Diagnostic Radiology | DX: Z12.31 Encounter for screening mammogram for malignant neoplasm of breast (principal) | CPT/HCPCS: 77063; 77067 ==

== ENCOUNTER 2023-03-19 13:51 | Outpatient (REF) | payer MEDICAID, SELFPAY ==
[2023-03-19 16:08] LABS: Hemoglobin 13.8 g/dl (12.0-16.0); Mean Corpuscular HGB Conc 33.7 g/dl (31.0-35.0); Mean Corpuscular Hemoglobin 30.9 pg (27.0-33.0); Mean Corpuscular Volume 91.9 fL (80.0-98.0); Platelet Count 261 X10*3/uL (160-400); Red Blood Count 4.46 X10*6/uL (4.20-5.50); Red Cell Distribution Width 12.2 % (11.0-16.0); White Blood Count 8.8 X10*3/uL (4.8-10.8)
[2023-03-19 16:12] LABS: Estimated Average Glucose 114 mg/dL; Hemoglobin A1c % 5.6 % (<6.0)
[2023-03-19 16:31] LABS: Alanine Aminotransferase 43 U/L (0-31); Albumin Level 4.6 g/dL (3.5-5.0); Alkaline Phosphatase 84 U/L (39-117); Anion Gap 15 (12-20); Aspartate Amino Transferase 26 U/L (5-31); Bilirubin Total 0.3 mg/dL (0.0-1.0); Blood Urea Nitrogen 15 mg/dL (9-16); Carbon Dioxide 25 mmol/L (22-29); Chloride 107 mmol/L (96-108); Cholesterol 195 mg/dL (<200); Estimated Glomerular Filt Rate > 60; Glucose Random 105 mg/dL (60-115); HDL Cholesterol 55 mg/dL (>40); LDL Cholesterol Calculated 97 mg/dL (<100); Potassium 3.9 mmol/L (3.3-5.1); Sodium 143 mmol/L (135-145); Triglycerides 215 mg/dL (<150)
[2023-03-19 16:38] LABS: TSH reflex Free T4 3.21 uIU/mL (0.32-4.0)
[2023-03-19 16:51] LABS: Vitamin B12 816 pg/mL (200-900)
[2023-03-20 04:04] LABS: HBc Num1 0.13 S/CO (0.00-0.79); HBsAGNum1 0.36 S/CO (0.00-0.99); Hepatitis B Core Antibody Nonreactive (Nonreactive); Hepatitis B Surface Antigen Negative (Negative)
[2023-03-20 05:23] LABS: CT PCR NOT DETECTED (Not Detect.); NG PCR NOT DETECTED (Not Detect.)
[2023-03-20 05:36] LABS: Syphilis Screen Nonreactive (Nonreactive)
[2023-03-20 05:56] LABS: HIV AB/AG Nonreactive (Nonreactive); HIV Num 1 0.05 S/CO (0.00-0.99); ~HepC Num1 0.06 S/CO (0.00-0.79); ~Hepatitis B Surface Antibody NONREACTIVE (Nonreactive); ~Hepatitis C Antibody Nonreactive (Nonreactive)
== END 2023-03-19 13:52 | disposition home or self-care (01) ==
LOC: HO.HHCL 13:51
PROVIDERS: Visit Provider Student in an Organized Health Care Education/Training Program
DX: Z00.00 Encounter for general adult medical examination without abnormal findings (principal); Z11.3 Encounter for screening for infections with a predominantly sexual mode of transmission; Z13.1 Encounter for screening for diabetes mellitus; Z11.59 Encounter for screening for other viral diseases; Z13.220 Encounter for screening for lipoid disorders; Z13.29 Encounter for screening for other suspected endocrine disorder
CPT/HCPCS: 0353U; 36415; 80053; 80061; 82607; 82746; 83036; 84443; 85027; 86704; 86706; 86780; 86803; 87340; 87389

== ENCOUNTER 2023-06-11 16:44 | Outpatient (REF) | payer MEDICAID, SELFPAY ==
[2023-06-14 03:59] LABS: HPV mRNA E6/E7 rflx Not Detected (Not Detected)
== END 2023-06-11 16:45 | disposition home or self-care (01) ==
LOC: HO.HHCLNP 16:44
PROVIDERS: Visit Provider Advanced Practice Midwife
DX: Z01.419 Encounter for gynecological examination (general) (routine) without abnormal findings (principal)
CPT/HCPCS: 87624; 88142